=== PATIENT | female | born 1965 | race Caucasian/White ===

== ENCOUNTER 2024-02-20 13:36 | Emergency (ER) | payer MEDICARE, OTHER, MEDICAID ==
[~2024-02-20] VITALS: Ht 157.5 cm; Wt 75.0 kg
[~2024-02-20 13:36] MED LIST: TEGRETOL; keppra
[2024-02-20 13:49] VITALS: O2SAT 100
[2024-02-20] MEDS ORDERED: KETOROLAC 60MG/2ML VIAL IM NR (17:00)
[2024-02-20] MEDS: KETOROLAC 30MG/ML VIAL IM NR (17:00)
[2024-02-20 18:18] VITALS: BP 128/83; PULSE 85; RESP 18; TEMP 98.6
== END 2024-02-20 18:18 | disposition home or self-care (01) ==
LOC: ER 14:31
DX: T22.051A Burn of unspecified degree of right shoulder, initial encounter (principal); M25.511 Pain in right shoulder; X58.XXXA Exposure to other specified factors, initial encounter; Y93.9 Activity, unspecified; Y92.89 Other specified places as the place of occurrence of the external cause; Y99.8 Other external cause status
CPT/HCPCS: 99283; 73030; 96372; J1885

== ENCOUNTER 2024-12-20 10:23 | Emergency (ER) | payer OTHER, MEDICAID ==
[~2024-12-20] VITALS: Ht 157.5 cm; Wt 73.0 kg
[2024-12-20 10:31] VITALS: TEMP 36.8; O2SAT 98
[2024-12-20 11:01] VITALS: O2SAT 97
[2024-12-20 11:53] VITALS: TEMP 98.8
[2024-12-20] MEDS: ACETAMINOPHEN 325MG TABLET PO ONE (11:53)
[2024-12-20] MEDS: CYCLOBENZAPRINE 10MG TABLET PO ONE (11:53)
[2024-12-20] MEDS: LIDOCAINE 5% PATCH TOP SCH (11:54)
[2024-12-20 12:17] VITALS: BP 120/55; PULSE 101; RESP 16
[2024-12-20] MEDS: KETOROLAC 30MG/ML VIAL IM ONE (12:17)
[2024-12-20] MEDS ORDERED: CYCL5TAB3 MT (15:16)
[2024-12-20] MEDS ORDERED: LIDO700A15 TP (15:16)
== END 2024-12-20 15:39 | disposition home or self-care (01) ==
LOC: ER 10:23
DX: M25.511 Pain in right shoulder (principal); M79.89 Other specified soft tissue disorders; Z88.0 Allergy status to penicillin
CPT/HCPCS: 93971; 73030; 96372; 99285; J1885; Z7610 ×2